=== PATIENT | male | born 1975 | race Caucasian/White ===

== ENCOUNTER 2017-04-01 20:48 | Emergency (ER) | payer OTHER ==
[~2017-04-01] VITALS: Ht 193 cm; Wt 117.9 kg
[2017-04-01] MEDS ORDERED: IV NORMAL SALINE 1000ML BAG 1,000 ML IV ONE (21:15)
[2017-04-01 21:21] LABS: BASO # 0.1 x10^3/uL (0.0-0.2); BASO % 1 % (0-3); EOS % 5 % (0-3); HEMOGLOBIN 14.5 g/dL (13.0-17.5); LYMPH # 3.4 x10^3/uL (1.0-4.8); LYMPH % 44 % (24-48); MEAN CORPUSCULAR HEMOGLOBIN 32 pg (25-35); MEAN CORPUSCULAR HGB CONC 36 g/dL (31-37); MEAN CORPUSCULAR VOLUME 89 fL (79-100); MONO % 7 % (0-9); NEUT % 44 % (31-73); PLATELET COUNT 311 x10^3/uL (140-400); RED BLOOD COUNT 4.51 x10^6/uL (4.30-5.70); RED CELL DISTRIBUTION WIDTH 12.6 % (11.5-14.5); WHITE BLOOD COUNT 7.8 x10^3/uL (4.0-11.0)
[2017-04-01 21:27] VITALS: BP 157/87
[2017-04-01 21:39] LABS: CALCIUM 8.1 mg/dL (8.5-10.1); CREATININE 0.9 mg/dL (0.7-1.3); GFR 92.5; POTASSIUM 3.3 mmol/L (3.5-5.1)
[2017-04-01 21:41] LABS: ALBUMIN 3.3 g/dL (3.4-5.0); ALBUMIN/GLOBULIN RATIO 0.7 (1.0-1.7); TOTAL BILIRUBIN 0.5 mg/dL (0.2-1.0); TOTAL PROTEIN 8.1 g/dL (6.4-8.2)
--- NOTE | 2017-04-01 21:43 | RAD ---
Indication: Syncope. Axial imaging through the brain was performed without contrast. One or more of the following individualized dose reduction techniques were utilized for this examination: 1. Automated exposure control 2. Adjustment of the mA and/or kV according to patient size 3. Use of iterative reconstruction technique No prior studies are available for comparison. The ventricles and sulci are within normal limits. No sulcal effacement, midline shift or hemorrhage is detected. Cisterns are patent. Minimal fluid in the right maxillary sinus is seen. IMPRESSION: No acute intracranial process is detected. Electronically signed by: Jonel Dang MD (04/01/2017 9:40 PM)
[2017-04-01 22:13] LABS: BARBITURATES NEG (NEG); BENZODIAZEPINES NEG (NEG); CANNABINOIDS NEG (NEG); COCAINE NEG (NEG); METHADONE NEG (NEG); OPIATES NEG (NEG); PHENCYCLIDINE NEG (NEG)
[2017-04-01] MEDS ORDERED: POTASSIUM CHLORIDE 20 MEQ/15 ML ORAL LIQUID. PO ONE (22:15)
--- NOTE | 2017-04-01 22:34 | PHYS DOC ---
Past Medical History Past Medical History: No Pertinent History Past Surgical History: No Surgical History Alcohol Use: Occasionally Drug Use: None Adult General Chief Complaint Chief Complaint: ALCOHOL INTOXICATION HPI HPI Patient is a 42 year old male who presents with syncope. The patient presents by EMS from [facility]. Most of history given by significant other. Reportedly the patient stated he didn't feel well & was becoming lightheaded. He lost consciousness & was caught by significant other who lowered him to the ground. No trauma or fall, no head injury. No seizure activity, no tongue biting, no incontinence. Reportedly unconscious for 10 minutes then drowsy. He denies any pain at time of my exam. He drank approximately 30 beers over 6- 8 hours, denies drug use. He is from [facility]. Review of Systems Review of Systems Constitutional: Denies fever or chills, reports syncope. Eyes: Denies change in visual acuity HENT: Denies nasal congestion or sore throat Respiratory: Denies cough or shortness of breath Cardiovascular: Denies chest pain or edema GI: Denies abdominal pain, nausea, vomiting, or diarrhea Musculoskeletal: Denies back pain or joint pain Integument: Denies rash or skin lesions Neurologic: Denies headache, focal weakness or sensory changes Current Medications Current Medications Current Medications Medications (Trade) Dose Ordered Sig/Nahomy Start Time Stop Time Status Last Admin Dose Admin Potassium Chloride (KCl Oral Soln) 40 meq 1X ONCE 04/01/17 22:15 04/01/17 22:16 DC 04/01/17 22:36 40 MEQ Sodium Chloride 1,000 ml @ 1,000 mls/hr 1X ONCE 04/01/17 21:15 04/01/17 22:14 DC 04/01/17 21:25 1,000 MLS/HR Allergies Allergies Allergies Coded Allergies Type Severity Reaction Last Updated Verified No Known Drug Allergies 04/01/17 No Physical Exam Physical Exam Constitutional: obese, no acute distress, non-toxic appearance. HENT: Normocephalic, atraumatic, bilateral external ears normal, oropharynx moist, nose normal. Eyes: PERRLA, EOMI, conjunctiva normal, no discharge. Neck: supple, no stridor. no midline c-spine tenderness Cardiovascular: RRR, no murmurs, no edema. Lungs & Thorax: LCTAB, no wheezing, no respiratory distress. Abdomen: soft, nontender, nondistended. Skin: Warm, dry, no erythema, no rash. Back: No tenderness. Extremities: No deformity or tenderness, no edema. Neurologic: Alert and oriented X 3, CN2-12 grossly intact, symmetric strength/ sensation to UE & LE, no focal deficits noted. Psychologic: flat affect Current Patient Data Vital Signs Vital Signs Date Time Temp Pulse Resp B/P (MAP) Pulse Ox O2 Delivery O2 Flow Rate FiO2 04/01/17 21:27 92 17 157/87 (110) 93 Room Air 2.0 04/01/17 20:48 98.4 98.4 Lab Values Laboratory Tests Test 04/01/17 21:00 04/01/17 21:58 White Blood Count 7.8 x10^3/uL (4.0-11.0) Red Blood Count 4.51 x10^6/uL (4.30-5.70) Hemoglobin 14.5 g/dL (13.0-17.5) Hematocrit 40.0 % (39.0-53.0) Mean Corpuscular Volume 89 fL (79-100) Mean Corpuscular Hemoglobin 32 pg (25-35) Mean Corpuscular Hemoglobin Concent 36 g/dL (31-37) Red Cell Distribution Width 12.6 % (11.5-14.5) Platelet Count 311 x10^3/uL (140-400) Neutrophils (%) (Auto) 44 % (31-73) Lymphocytes (%) (Auto) 44 % (24-48) Monocytes (%) (Auto) 7 % (0-9) Eosinophils (%) (Auto) 5 % (0-3) H Basophils (%) (Auto) 1 % (0-3) Neutrophils # (Auto) 3.4 x10^3uL (1.8-7.7) Lymphocytes # (Auto) 3.4 x10^3/uL (1.0-4.8) Monocytes # (Auto) 0.6 x10^3/uL (0.0-1.1) Eosinophils # (Auto) 0.3 x10^3/uL (0.0-0.7) Basophils # (Auto) 0.1 x10^3/uL (0.0-0.2) Sodium Level 135 mmol/L (136-145) L Potassium Level 3.3 mmol/L (3.5-5.1) L Chloride Level 100 mmol/L (98-107) Carbon Dioxide Level 21 mmol/L (21-32) Anion Gap 14 (6-14) Blood Urea Nitrogen 8 mg/dL (8-26) Creatinine 0.9 mg/dL (0.7-1.3) Estimated GFR (Cockcroft-Gault) 92.5 BUN/Creatinine Ratio 9 (6-20) Glucose Level 115 mg/dL (70-99) H Calcium Level 8.1 mg/dL (8.5-10.1) L Total Bilirubin 0.5 mg/dL (0.2-1.0) Aspartate Amino Transferase (AST) 32 U/L (15-37) Alanine Aminotransferase (ALT) 29 U/L (16-63) Alkaline Phosphatase 61 U/L (46-116) Troponin I Quantitative 0.041 ng/mL (0.000-0.055) KT-Tud-A-Type Natriuretic Peptide 2192 pg/mL (0-124) H Total Protein 8.1 g/dL (6.4-8.2) Albumin 3.3 g/dL (3.4-5.0) L Albumin/Globulin Ratio 0.7 (1.0-1.7) L Ethyl Alcohol Level 347 mg/dL (0-10) H Urine Opiates Screen Neg (NEG) Urine Methadone Screen Neg (NEG) Urine Barbiturates Neg (NEG) Urine Phencyclidine Screen Neg (NEG) Urine Amphetamine/Methamphetamine Neg (NEG) Urine Benzodiazepines Screen Neg (NEG) Urine Cocaine Screen Neg (NEG) Urine Cannabinoids Screen Neg (NEG) Urine Ethyl Alcohol Pos (NEG) Laboratory Tests 04/01/17 21:00 Laboratory Tests 04/01/17 21:00 EKG EKG Interpreted by me: Normal sinus rhythm rate 89, no ST elevation, T waves inverted without depression in 1 & aVL, normal intervals, incomplete right bundle branch block, no ectopy. [] Radiology/Procedures Radiology/Procedures PROCEDURE: CT HEAD WO CONTRAST Indication: Syncope. Axial imaging through the brain was performed without contrast. One or more of the following individualized dose reduction techniques were utilized for this examination: 1. Automated exposure control 2. Adjustment of the mA and/or kV according to patient size 3. Use of iterative reconstruction technique No prior studies are available for comparison. The ventricles and sulci are within normal limits. No sulcal effacement, midline shift or hemorrhage is detected. Cisterns are patent. Minimal fluid in the right maxillary sinus is seen. IMPRESSION: No acute intracranial process is detected. Electronically signed by: Jonel Dang MD (04/01/2017 9:40 PM) DICTATED and SIGNED BY: JONEL DANG MD DATE: 04/01/172138 Chest x-ray: Interpreted by me: Cardiomegaly, no infiltrate, no pneumothorax [] Course & Med Decision Making Course & Med Decision Making Pertinent Labs and Imaging studies reviewed. (See chart for details) The patient presents with syncope. He is alert with normal neuro exam at time of my assessment, though drowsy. Initially required O2 2L by NC to maintain sats in mid-high 90s. He received IV fluids. Obtained labs, EKG, CXR, head CT. CXR shows cardiomegaly & BNP is elevated. He felt better & requested discharge home. We discussed abnormal results & I did offer admission. He would like to go home. He ambulates with steady gait. Recommend rest, PO hydration, avoid excess alcohol consumption & excess heat exposure. Follow up with a primary care doctor in 2-3 days. Come back for focal neuro deficit, severe chest pain or shortness of breath, recurrence of syncope, any otherwise worsening condition. Discharged home in stable condition. Dragon Disclaimer Dragon Disclaimer This electronic medical record was generated, in whole or in part, using a voice recognition dictation system. Departure Departure Impression: Primary Impression: Syncope Additional Impressions: Alcohol intoxication Hypokalemia Disposition: 01 HOME, SELF-CARE Condition: IMPROVED Referrals: NO PCP (PCP) Patient Instructions: Alcohol Intoxication, [id number], Syncope, [id number] Additional Instructions: You were seen in the emergency department today for fainting and alcohol intoxication. The fainting is likely caused by alcohol, dehydration, and heat. Your chest x-ray showed enlarged heart and your BNP level was elevated. Please drink fluids, avoid excess alcohol consumption or excess heat exposure. Please rest and follow-up with a primary care doctor in about 2-3 days when you return home. Return to the emergency department for recurrent fainting, chest pain, palpitations, shortness of breath, trouble moving arms or legs, any otherwise worsening condition. Problem Qualifiers SAUL ALLEN MD Apr 01, 2017:34
--- NOTE | 2017-04-02 07:41 | RAD ---
Indication: Syncope. Time of exam 2117 hours. No prior studies are available for comparison. The heart is enlarged. No infiltrate or failure is detected. No effusion or pneumothorax is detected. Impression: Cardiomegaly. No other significant abnormality is identified.
--- NOTE | 2017-04-02 07:49 | EKG ---
[facility] [address] [place] [id number] Test Date: 2017-04-01 Test Time: 20:57:57 Pat Name: ESA VILLALOBOS Department: Room: Gender: M [employer]: : 1975 Requested By: SAUL ALLEN Order Number: [id number] Reading MD: Naeem Hickey Measurements Intervals [place] Rate: 89 P: 34 UT: 166 QRS: -3 QRSD: 116 T: 128 QT: 374 QTc: 456 Interpretive Statements SINUS ARRHYTHMIA LEFT ATRIAL ABNORMALITY LEFTWARD AXIS INCOMPLETE RIGHT BUNDLE BRANCH BLOCK LVH WITH REPOLARIZATION ABNORMALITY QRS(T) CONTOUR ABNORMALITY CANNOT RULE OUT INFERIOR MYOCARDIAL DAMAGE RI6.01 Unconfirmed report No previous ECG available for comparison Electronically Signed On 04-05-2017 9:49:08 CDT by Naeem Hickey
== END 2017-04-01 22:46 | disposition home or self-care (01) ==
LOC: ER 20:48
DX: R55 Syncope and collapse (principal); F10.129 Alcohol abuse with intoxication, unspecified; E87.6 Hypokalemia
CPT/HCPCS: 36415; 70450; 71010; 80053; 80305; 80320; 83880; 84484; 85027; 93005; 99285; J7030; G0480; G0481